=== PATIENT | male | born 1985 | race Caucasian/White ===

== ENCOUNTER 2020-03-25 03:36 | Emergency (ER) | payer MEDICAID ==
[~2020-03-25] VITALS: Ht 172.7 cm; Wt 86.0 kg
[2020-03-25 03:38] VITALS: BP 125/89
[2020-03-25] MEDS ORDERED: LORAZEPAM 1MG TABLET PO ONE (04:45)
[2020-03-25 04:58] LABS: BASOPHILS % 0.8 % (0.0-2.0); EOSINOPHILS % 1.4 % (0.0-5.0); HEMATOCRIT. 39.1 % (42.0-52.0); HEMOGLOBIN. 13.8 g/dL (14.0-18.0); LYMPHOCYTES % 44.7 % (20.0-50.0); MEAN CORPUSCULAR HEMOGLOBIN 30.1 pg (28.0-32.0); MEAN CORPUSCULAR VOLUME 85.3 fL (80.0-94.0); MEAN PLATELET VOLUME 7.3 fl (7.4-10.4); MONOCYTES % 8.3 % (2.0-8.0); NEUTROPHILS % 44.8 % (40.0-76.0); PLATELET 255 x1000/uL (130-400); RED BLOOD CELL COUNT 4.58 mill/uL (4.7-6.1); RED CELL DISTRIBUTION WIDTH 14.5 % (11.6-14.6)
[2020-03-25 05:02] LABS: CHLORIDE 107 mEq/L (98-107)
== END 2020-03-25 06:29 | disposition home or self-care (01) ==
LOC: ER 03:36
DX: F41.9 Anxiety disorder, unspecified (principal); F51.4 Sleep terrors [night terrors]
CPT/HCPCS: 36415; 80053; 84484; 85025; 93005; 99284